=== PATIENT | female | born 1945 | race Caucasian/White ===

== ENCOUNTER 2020-09-26 08:04 | Emergency (ER) | payer MEDICARE ==
[2020-09-26 09:33] LABS: POTASSIUM 3.9 mmol/L (3.5-5.1)
[2020-09-26 09:34] LABS: CALCIUM 9.3 mg/dL (8.3-10.5)
[2020-09-26 09:55] LABS: BASO # 0.05 (0.02-0.10); EOS # 0.02 (0.04-0.40); EOS % 0.1 % (1.0-5.0); HEMATOCRIT 35.7 % (37.0-47.0); LYMPH# 0.97 (1.50-4.00); MEAN CELL VOLUME 68 fl (78-100); MEAN CORPUSCULAR HEMOGLOBIN 21 pg (27-31); MEAN CORPUSCULAR HGB CONC 31 g/dL (33-37); MEAN PLATELET VOLUME 9.3 fl (7.4-10.4); MONO # 1.05 (0.20-0.80); NEU # 11.87 (1.40-6.50); PLATELET COUNT 377 K/mm3 (130-400); RED BLOOD COUNT 5.24 M/mm3 (4.10-5.30); RED CELL DISTRIBUTION WIDTH 18.8 % (11.5-14.5)
[2020-09-26] MEDS ORDERED: NORCO 325 MG-51 TA1 PO (11:10)
[2020-09-26] MEDS ORDERED: AUGMENTIN 875-1 EAC1 PO (11:10)
[2020-09-26 11:26] VITALS: BP 158/64
[2020-09-26] MEDS ORDERED: HCTZ 25MG25 MG PO (12:21)
[2020-09-26] MEDS ORDERED: ASPIRIN E.C. 8181 MG PO (12:22)
[2020-09-26] MEDS ORDERED: LOSARTAN POTAS100 MG PO (12:22)
[2020-09-26] MEDS ORDERED: FUROSEMIDE20 MG PO (12:22)
[2020-09-26] MEDS ORDERED: MELOXICAM15 MG PO (12:22)
[2020-09-26] MEDS ORDERED: RELION NOVOLIN10 ML SQ (12:23)
[2020-09-29] MEDS ORDERED: KLOR-CON M1010 MEQ PO (12:01)
== END 2020-09-26 11:33 | disposition home or self-care (01) ==
LOC: ED 08:04
PROVIDERS: Family Medicine
DX: S61.552A Open bite of left wrist, initial encounter (principal); E11.628 Type 2 diabetes mellitus with other skin complications; L03.114 Cellulitis of left upper limb; I10 Essential (primary) hypertension; F17.200 Nicotine dependence, unspecified, uncomplicated; Z88.8 Allergy status to other drugs, medicaments and biological substances; Z79.4 Long term (current) use of insulin; Z20.3 Contact with and (suspected) exposure to rabies; W54.0XXA Bitten by dog, initial encounter; Y92.009 Unspecified place in unspecified non-institutional (private) residence as the place of occurrence of the external cause
CPT/HCPCS: J0295

== ENCOUNTER 2020-10-10 09:25 | Outpatient (RCR) | payer MEDICARE ==
[2020-09-29 11:50] VITALS: BP 174/83
[2020-10-03 09:32] VITALS: BP 150/63
[~2020-10-10 09:25] MED LIST: ASPIRIN E.C. 8181 MG PO; AUGMENTIN 875-1 EAC1 PO; FUROSEMIDE20 MG PO; HCTZ 25MG25 MG PO; KLOR-CON M1010 MEQ PO; LOSARTAN POTAS100 MG PO; MELOXICAM15 MG PO; NORCO 325 MG-51 TA1 PO; RELION NOVOLIN10 ML SQ
[2020-10-10 09:39] VITALS: BP 155/60
== END 2020-10-10 12:30 | disposition home or self-care (01) ==
LOC: AMSURD 09:25
DX: Z23 Encounter for immunization (principal); Z20.3 Contact with and (suspected) exposure to rabies; L03.114 Cellulitis of left upper limb; S61.452A Open bite of left hand, initial encounter; W54.0XXA Bitten by dog, initial encounter

== ENCOUNTER → 2021-11-10 | Outpatient (CLI) | payer MEDICARE | LOC: VAS 12:47 → RAD 13:00 → VAS 13:00 | DX: I50.9 Heart failure, unspecified (principal) ==